=== PATIENT | female | born 1975 | race Caucasian/White ===

== ENCOUNTER → 2017-12-20 | Outpatient (CLI) | payer MEDICAID ==
--- NOTE | 2017-12-21 13:52 | MM ---
Reason for exam: screening (asymptomatic). Last mammogram was performed 1 year and 2 months ago. History: US discontinued breast bx LT of the left breast, April 08, 2015. Benign u/S left breast needle core of the left breast, October 16, 2013. Physical Findings: A clinical breast exam by your physician is recommended on an annual basis and results should be correlated with mammographic findings. MG 3D Screening Mammo W/Cad Bilateral CC and MLO view(s) were taken. Prior study comparison: October 23, 2016, bilateral MG 3d diag mammo w/cad [facility]. March 22, 2015, bilateral MG diagnostic mammo w CAD [facility]. The breast tissue is heterogeneously dense. This may lower the sensitivity of mammography. Finding: There are typically benign dystrophic, round, regional and grouped calcifications in both breasts. There is no discrete abnormality. ASSESSMENT: Benign, BI-RAD 2 RECOMMENDATION: Routine screening mammogram of both breasts in 1 year.
== END | disposition home or self-care (01) ==
LOC: RADMAMWWP 10:12
PROVIDERS: ATTEND Obstetrics & Gynecology
DX: Z12.31 Encounter for screening mammogram for malignant neoplasm of breast (principal)
CPT/HCPCS: 77063; 77067

== ENCOUNTER → 2017-12-23 | Outpatient (CLI) | payer MEDICAID ==
--- NOTE | 2017-12-23 17:42 | XR ---
EXAMINATION TYPE: XR spine complete AP and Lat DATE OF EXAM: 12/23/2017 COMPARISON: NONE HISTORY: Back pain TECHNIQUE: 9 views FINDINGS: The cervical vertebra of normal alignment. There is some anterior spurring at C4-5. Disc sp aces are fairly normal. Atlantoaxial facet joint is normal. Thoracic vertebra have normal alignment. Lumbar vertebra have normal alignment. There is mild anterior spurring at L2-3 L3-4. I see no signifi cant thoracic and lumbar disc space narrowing. Sacroiliac joints appear normal. Posterior elements ap pear intact. The remainder of the exam is unremarkable. IMPRESSION: Minor degenerative spurring. Otherwise negative complete spine exam.
== END | disposition home or self-care (01) ==
LOC: RADXRMAIN 17:02
PROVIDERS: ATTEND Physician Assistant
DX: M46.02 Spinal enthesopathy, cervical region (principal); M46.06 Spinal enthesopathy, lumbar region
CPT/HCPCS: 72082

== ENCOUNTER → 2018-07-22 | Outpatient (CLI) | payer MEDICAID ==
--- NOTE | 2018-07-22 10:12 | US ---
EXAMINATION TYPE: US abdomen complete DATE OF EXAM: 07/22/2018 COMPARISON: NONE CLINICAL HISTORY: R10.9 Abd Pain. Epigastric pain after meals EXAM MEASUREMENTS: Liver Length: 17.0 cm Gallbladder Wall: 0.2 cm CBD: 0.5 cm Spleen: 10.0 cm Right Kidney: 10.2 x 6.0 x 3.8 cm Left Kidney: 10.1 x 5.9 x 4.7 cm Pancreas: hyperechoic, but no masses seen Liver: wnl Gallbladder: wnl Evidence for sonographic Enciso's sign: no CBD: wnl Spleen: wnl Right Kidney: wnl Left Kidney: wnl Upper IVC: wnl Abd Aorta: wnl IMPRESSION: 1. Mild hepatomegaly. 2. Abdomen ultrasound is otherwise unremarkable.
== END | disposition home or self-care (01) ==
LOC: RADUSMAIN 09:11
PROVIDERS: ATTEND Family Medicine
DX: R16.0 Hepatomegaly, not elsewhere classified (principal)
CPT/HCPCS: 76700

== ENCOUNTER → 2019-08-26 | Outpatient (CLI) | payer MEDICAID ==
--- NOTE | 2019-08-29 08:10 | MM ---
Reason for exam: screening (asymptomatic). Last mammogram was performed 1 year and 8 months ago. History: US discontinued breast bx LT of the left breast, April 08, 2015. Benign u/S left breast needle core of the left breast, October 16, 2013. Physical Findings: A clinical breast exam by your physician is recommended on an annual basis and results should be correlated with mammographic findings. MG 3D Screening Mammo W/Cad Bilateral CC and MLO view(s) were taken. Prior study comparison: December 20, 2017, bilateral MG 3d screening mammo w/cad. October 23, 2016, bilateral MG 3d diag mammo w/cad [facility]. The breast tissue is heterogeneously dense. This may lower the sensitivity of mammography. No significant changes when compared with prior studies. ASSESSMENT: Negative, BI-RAD 1 RECOMMENDATION: Routine screening mammogram of both breasts in 1 year.
== END | disposition home or self-care (01) ==
LOC: RADMAMWWP 10:37
PROVIDERS: ATTEND Obstetrics & Gynecology
DX: Z12.31 Encounter for screening mammogram for malignant neoplasm of breast (principal)
CPT/HCPCS: 77063; 77067

== ENCOUNTER → 2020-01-11 | Outpatient (CLI) | payer MEDICAID ==
--- NOTE | 2020-01-12 07:13 | US ---
EXAMINATION TYPE: US chest DATE OF EXAM: 01/11/2020 COMPARISON: NONE CLINICAL HISTORY: R22.2 localized swelling, mass, and lump, trunk. Mass of chest wall. Palpable area left lateral chest/upper abdomen x 1 month. TECHNIQUE/FINDINGS: Targeted grayscale and color ultrasound was performed of the palpable abnormality of the left chest wall. Scanned area of palpable left lateral chest/upper abdomen. There is an isoechoic prominent area of ti ssue at area of concern that measures: 4.1 x 4.8 x 1.1 cm. This is merely avascular and well circumsc ribed. Hyperechoic bands smoothly rounded through the lesion. IMPRESSIONS: Lipomatous lesion of the left chest wall measuring 4.8 cm. Most commonly this is a benig n lipoma. If there is clinical interval growth MRI with contrast would be recommended much less likel y liposarcoma.
== END | disposition home or self-care (01) ==
LOC: RADUSWWP 16:53
PROVIDERS: ATTEND Family Medicine
DX: L98.8 Other specified disorders of the skin and subcutaneous tissue (principal)
CPT/HCPCS: 76604

== ENCOUNTER → 2020-12-18 | Outpatient (CLI) | payer MEDICAID ==
--- NOTE | 2020-12-20 11:07 | MM ---
Reason for exam: screening (asymptomatic). Last mammogram was performed 1 year and 4 months ago. History: US discontinued breast bx LT of the left breast, April 08, 2015. Benign u/S left breast needle core of the left breast, October 16, 2013. Physical Findings: A clinical breast exam by your physician is recommended on an annual basis and results should be correlated with mammographic findings. MG 3D Screening Mammo W/Cad Bilateral CC and MLO view(s) were taken. Prior study comparison: August 26, 2019, bilateral MG 3d screening mammo w/cad. December 20, 2017, bilateral MG 3d screening mammo w/cad. The breast tissue is heterogeneously dense. This may lower the sensitivity of mammography. There is no discrete abnormality. No significant changes when compared with prior studies. ASSESSMENT: Negative, BI-RAD 1 RECOMMENDATION: Routine screening mammogram of both breasts in 1 year.
== END | disposition home or self-care (01) ==
LOC: RADMAMWWP 09:37
PROVIDERS: ATTEND Obstetrics & Gynecology
DX: Z12.31 Encounter for screening mammogram for malignant neoplasm of breast (principal)
CPT/HCPCS: 77063; 77067

== ENCOUNTER → 2022-09-14 | Outpatient (CLI) | payer MEDICAID ==
--- NOTE | 2022-09-15 17:06 | MM ---
Reason for Exam: Screening (asymptomatic). Last mammogram was performed 1 year(s) and 9 month(s) ago. Patient History: Menarche at age 14. First Full-Term at age 30. Previous chest radiation therapy. Hormonal Contraceptives, from age 21 until age 39. 10/16/2013, Benign Core Biopsy on the left side. 04/08/2015, US discontinued breast bx LT on the left side. Risk Values: Kathy 5 year model risk: 1.4%. NCI Lifetime model risk: 12.5%. Prior Study Comparison: 12/20/2017 Bilateral Screening Mammogram, [facility]. 08/26/2019 Bilateral Screening Mammogram, [facility]. 12/18/2020 Bilateral Screening Mammogram, [facility]. Tissue Density: The breast tissue is heterogeneously dense. This may lower the sensitivity of mammography. Findings: Analyzed By CAD. Pattern appears symmetrical and stable. No significant interval change is evident. No suspicious groups of microcalcifications, spiculated or lobular masses, architectural distortion or other secondary signs of malignancy are mammographically apparent. Overall Assessment: Benign, BI-RAD 2 Management: Screening Mammogram of both breasts in 1 year. A negative mammogram report should not preclude additional follow up of suspicious palpable abnormalities. Patient should continue monthly self breast exam. A clinical breast exam by your physician is recommended on an annual basis and results should be correlated with mammographic findings. Electronically signed and approved by: Harish Escobar D.O. Radiologis
== END | disposition home or self-care (01) ==
LOC: RADMAMWWP 08:28
PROVIDERS: ATTEND Obstetrics & Gynecology
DX: Z12.31 Encounter for screening mammogram for malignant neoplasm of breast (principal); Z92.3 Personal history of irradiation; Z98.890 Other specified postprocedural states
CPT/HCPCS: 77063; 77067

== ENCOUNTER → 2023-02-08 | Outpatient (CLI) | payer MEDICAID ==
[2023-02-08 16:18] LABS: Chol/HDL Ratio 3.48 Ratio; Glucose 99 mg/dL (70-110); LDL Cholesterol,Calculated 99.7 mg/dL (0.0-131.0)
== END | disposition home or self-care (01) ==
LOC: LABWHC1 11:04
PROVIDERS: ATTEND Family Medicine
DX: E78.1 Pure hyperglyceridemia (principal)
CPT/HCPCS: 36415; 80061; 82947

== ENCOUNTER → 2023-06-24 | Outpatient (CLI) | payer MEDICAID ==
--- NOTE | 2023-06-24 17:59 | US ---
EXAMINATION TYPE: US pelvis complete transvag DATE OF EXAM: 06/24/2023 COMPARISON: NONE CLINICAL INDICATION: Female, 48 years old with history of R10.2 PELVIC AND PERINEAL PAIN; pelvic full ness, sensation of needing to urinate x 1 month TECHNIQUE: Transabdominal (TA). Transabdominal sonographic images of the pelvis were acquired. Tra nsvaginal sonographic images were medically necessary to better assess the following anatomy: Ovaries Date of LMP: [id number] EXAM MEASUREMENTS: Uterus: 10.6x4.6x6.7 cm Endometrial Stripe: 0.8 cm Right Ovary: not visualized Left Ovary: 3.3x2.7x2.8 cm 1. Uterus: Anteverted, large nabothian cyst:2.2x1.5x1.7cm wnl 2. Endometrium: wnl, heterogenous 3. Right Ovary: Obscured by overlying bowel gas 4. Left Ovary: cystic area noted: 2.7x2.3x2.2cm 5. Bilateral Adnexa: Obscured by overlying bowel gas 6. Posterior cul-de-sac: wnl Rt ovary not visualized due to bowel. Cystic area noted on left ovary was difficult to delineate from ovary IMPRESSION: 1. cervical nabothian cyst. 2. Probable functional ovarian cyst left ovary. Consider follow-up study in 6 weeks.
== END | disposition home or self-care (01) ==
LOC: RADUSWWP 15:29
PROVIDERS: ATTEND Family Medicine
DX: N88.8 Other specified noninflammatory disorders of cervix uteri (principal)
CPT/HCPCS: 76830; 76856

== ENCOUNTER → 2023-10-14 | Outpatient (CLI) | payer MEDICAID ==
[2023-10-15 02:58] LABS: Basophils # (A) 0.04 X 10*3/uL (0.00-0.10); Basophils % (A) 0.4 %; Eosinophils # (A) 0.29 X 10*3/uL (0.04-0.35); Eosinophils % (A) 3.2 %; HCT 39.3 % (37.2-50.0); HGB 12.4 g/dL (12.0-17.0); Lymphocytes # (A) 2.09 X 10*3/uL (0.90-5.00); Lymphocytes % (A) 23.3 %; MCHC 31.6 g/dL (32.0-37.0); MCV 85.4 FL (80.0-97.0); Mean Platelet Volume 9.9 FL (9.5-12.2); Monocytes # (A) 0.75 X 10*3/uL (0.20-1.00); Monocytes % (A) 8.4 %; NRBC Per 100 WBC 0 X 10*3/uL (0.00-0.01); Neutrophils # (A) 5.79 X 10*3/uL (1.80-7.70); Neutrophils % (A) 64.5 %; Platelet Count 273 X 10*3/uL (140-440); WBC 8.98 X 10*3/uL (4.50-10.00)
== END | disposition home or self-care (01) ==
LOC: LABWHC1 14:45
PROVIDERS: ATTEND Obstetrics & Gynecology
DX: Z01.812 Encounter for preprocedural laboratory examination (principal)
CPT/HCPCS: 36415; 85025

== ENCOUNTER 2023-10-21 08:42 | Day surgery (SDC) | payer MEDICAID ==
[2023-10-18 13:34] VITALS: BMI 33.4
--- NOTE | 2023-10-20 15:39 | P.HPOB ---
History of Present Illness H&P Date: 10/20/23 Chief Complaint: Menorrhagia with irregular cycle This is a 48 y.o. female, 2, para 2, who presents for dilatation and curettage with hysteroscopy and Novasure endometrial ablation due to menorrhagia with irregular cycle. She complains of painful menses occurring more that once a month lasting 5-6 days each time. Her menses are very heavy with clots. Pelvic ultrasound showed uterus measuring 10.6 x 4.6 x 6.7 cm with endometrium 8 mm and left ovary with 2.7 cm cyst. Right ovary was not well-visualized. OB Hx: . 1 vaginal delivery and 1 section. General Cleaner Hx: History of chlamydia treated years ago. Social Hx: . 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 Review of Systems Constitutional: Denies chills, Denies fever Eyes: denies blurred vision, denies pain Ears, nose, mouth and throat: Denies headache, Denies sore throat Cardiovascular: Denies chest pain, Denies shortness of breath Respiratory: Denies cough Gastrointestinal: Denies abdominal pain, Denies diarrhea, Denies nausea, Denies vomiting Genitourinary: Reports dysmenorrhea, Reports dyspareunia, Reports menorrhagia, Reports vaginal dryness, Reports vaginal itching Menstruation: Reports menses variable, Reports period heavy Musculoskeletal: Denies myalgias Integumentary: Denies pruritus, Denies rash Neurological: Denies numbness, Denies weakness Psychiatric: Reports anxiety Past Medical History Past Medical History: No Reported History History of Any Multi-Drug Resistant Organisms: None Reported Past Surgical History: Breast Surgery, Section Additional Past Surgical History / Comment(s): left breast lumpectomy-benign Past Anesthesia/Blood Transfusion Reactions: No Reported Reaction, Motion Sickness Additional Past Anesthesia/Blood Transfusion Reaction / Comment(s): no blood transfusion Past Psychological History: Anxiety Smoking Status: Current every day smoker Past Alcohol Use History: Occasional Additional Past Alcohol Use History / Comment(s): . Past Drug Use History: Marijuana Additional Drug Use History / Comment(s): daily - Past Family History Mother Family Medical History: No Reported History Medications and Allergies Home Medications Medication Instructions Recorded Confirmed Type Sertraline [Zoloft] 100 mg PO DAILY 06/23/23 10/21/23 History Fexofenadine/Pseudoephedrine 1 tab PO DAILY 10/21/23 10/21/23 History [Madai-D 24 Hour Tablet] Allergies Allergy/AdvReac Type Severity Reaction Status Date / Time No Known Allergies Allergy Verified 10/21/23 08:53 Exam Osteopathic Statement: *. No significant issues noted on an osteopathic structural exam other than those noted in the History and Physical/Consult. HEENT: within normal limits Heart: regular rate and rhythm Lungs: clear to auscultation bilaterally Abdomen: soft, non-tender Pelvic: uterus anteverted, non-tender, no adnexal masses or tenderness Extremities: neg. Tai's Assessment and Plan (1) Menorrhagia with irregular cycle Current Visit: No Status: Acute Code(s): N92.1 - EXCESSIVE AND FREQUENT MENSTRUATION WITH IRREGULAR CYCLE SNOMED Code(s): 584172122 Plan: Proceed with dilatation and curettage with hysteroscopy and Novasure endometrial ablation. I have discussed the risks, benefits, and alternative therapies for the above- mentioned procedure and for both sedation/anesthesia as well as necessary blood products administration, if indicated, as they pertain to this patient. The patient has indicated her understanding and acceptance of the risks and procedures discussed.
[~2023-10-21 08:42] MED LIST: DEXAMETHASONE SOD PHOSPHATE 4 MG/ML 1 ML VIAL IV ONE; LACTATED RINGERS 1,000 ML IV SCH; LIDOCAINE 1% (10MG/ML) FOR IV START INTRADERMA PRN; ONDANSETRON 4 MG/2 ML VIAL IVP ONE; Pre Op ABX Message 1 EACH MISC MISCELLANE ONE; SCOPOLAMINE 1 MG/72 HR PATCH TRANSDERM ONE; droPERidol 5 MG/2 ML VIAL IVP ONE
[2023-10-21] MEDS ORDERED: MIDAZOLAM 2 MG/2 ML VIAL IVP ONE (09:15)
[2023-10-21] MEDS ORDERED: LACTATED RINGERS 1,000 ML IV ONE ×2 (09:15)
[2023-10-21] MEDS ORDERED: PROPOFOL 10 MG/ML 20 ML VIAL IV ONE (09:19)
[2023-10-21] MEDS ORDERED: LIDOCAINE 1% INJ 10MG/ML (20 ML MDV) ONE (09:19)
[2023-10-21] MEDS ORDERED: GLYCOPYRROLATE 0.2 MG/ML 2 ML VIAL ONE (09:19)
[2023-10-21] MEDS ORDERED: fentaNYL (PF) 50 MCG/ML 2 ML AMP ONE (09:19)
[2023-10-21] MEDS ORDERED: KETOROLAC 15 MG/ML 1 ML VIAL ONE (09:19)
[2023-10-21 09:38] VITALS: RESP 16
--- NOTE | 2023-10-21 09:59 | P.OP ---
Date of Procedure: 10/21/23 Preoperative Diagnosis: Menorrhagia with irregular cycle Dysmenorrhea Postoperative Diagnosis: Same Procedure(s) Performed: Patient and curettage with hysteroscopy and NovaSure endometrial ablation Anesthesia: GATITO Surgeon: Mariela Prieto Estimated Blood Loss (ml): 5 Pathology: other (Endometrial curettings) Condition: stable Disposition: same day Indications for Procedure: This is a 48 y.o. female, 2, para 2, who presents for dilatation and curettage with hysteroscopy and Novasure endometrial ablation due to menorrhagia with irregular cycle. She complains of painful menses occurring more that once a month lasting 5-6 days each time. Her menses are very heavy with clots. Pelvic ultrasound showed uterus measuring 10.6 x 4.6 x 6.7 cm with endometrium 8 mm and left ovary with 2.7 cm cyst. Right ovary was not well-visualized. Operative Findings: Uterus is sounded to 9 cm, cervix is sounded to 3 cm. Upon hysteroscopy, dyssynchronous endometrial pattern is noted. Both tubal ostia are visualized. Uterus is anteverted with no adnexal masses. Description of Procedure: The patient is taken to the operating room. She is placed in the dorsal lithotomy position after general anesthesia was given. She is prepped and draped in the normal sterile fashion. Bladder is drained with a catheter and then removed. Pelvic exam is performed under anesthesia. Uterus is found to be anteverted with no adnexal masses. She is placed in slight Trendelenburg position. A right angle retractor is used to visualize the cervix. The anterior lip of the cervix is grasped with a single-tooth tenaculum. Cervix is sounded to 3 cm. Uterus is sounded to 9 cm. Cervix is gently dilated with Victoria dilators until a hysteroscope could be passed. Hysteroscopy is performed using normal saline. The above noted findings are noted. Next a polyp forceps is introduced. And a minimal amount of tissue was obtained. Next medium-sized size sharp curette was placed. A moderate amount of endometrial curettings were obtained. Next NovaSure array was inserted into the endometrial cavity. Length was set at 6 cm and width was determined to be 4.6 cm. Next cavity assessment was completed and passed on the first try. Next NovaSure array was fired at and 52 W for 115 seconds. Next the array was removed, inspected and then discarded. Next the hysteroscope was reinserted. Uniform charring was noted. Pictures were taken. Hysteroscope was removed. Single-tooth tenaculum was removed from the anterior lip of the cervix. Minimal bleeding was noted. All other instruments removed from the vagina. Sponge counts were correct. Patient is taken to recovery room in stable condition.
[2023-10-21] MEDS: HYDROmorphone 0.5 MG/0.5 ML SYRINGE IVP PRN ×2 (10:12→10:25)
[2023-10-21 10:28] VITALS: TEMP 97.3
[2023-10-21 11:19] VITALS: BP 145/83; PULSE 68
== END 2023-10-21 11:12 | disposition home or self-care (01) ==
LOC: OR 08:42
PROVIDERS: ATTEND Obstetrics & Gynecology
DX: N83.202 Unspecified ovarian cyst, left side (principal); N94.6 Dysmenorrhea, unspecified; F41.9 Anxiety disorder, unspecified; F10.90 Alcohol use, unspecified, uncomplicated; F17.200 Nicotine dependence, unspecified, uncomplicated; Z79.899 Other long term (current) drug therapy
CPT/HCPCS: 58563; 81025; 88305; J2250; J1100; J2405; J2001; J3010; J1885; J2704; J1170

== ENCOUNTER → 2023-12-20 | Outpatient (CLI) | payer MEDICAID ==
--- NOTE | 2023-12-21 08:49 | MM ---
Reason for Exam: Screening (asymptomatic). Last mammogram was performed 1 year(s) and 3 month(s) ago. Patient History: Menarche at age 14. First Full-Term at age 30. Premenopausal. Previous chest radiation therapy. Hormonal Contraceptives, from age 21 until age 39. 10/16/2013, Benign Core Biopsy on the left side. 04/08/2015, US discontinued breast bx LT on the left side. Risk Values: Kathy 5 year model risk: 1.4%. NCI Lifetime model risk: 12.3%. Prior Study Comparison: 08/26/2019 Bilateral Screening Mammogram, [facility]. 12/18/2020 Bilateral Screening Mammogram, [facility]. 09/14/2022 Bilateral MG 3D screening mammo w/cad, [facility]. Tissue Density: The breast tissue is heterogeneously dense. This may lower the sensitivity of mammography. Findings: Analyzed By CAD. There is no suspicious group of microcalcifications or new suspicious mass. Overall Assessment: Negative, BI-RAD 1 Management: Screening Mammogram of both breasts in [address] [facility] will attempt to contact patient to return for supplemental views and ultrasound if indicated. Patient should continue monthly self-breast exams. A clinical breast exam by your physician is recommended on an annual basis. This exam should not preclude additional follow-up of suspicious palpable abnormalities. Note on Kathy scores and lifetime risk: 1. A Kathy score greater than 3% is considered moderate risk. If this is the case, consider specialist referral to assess eligibility for a risk reducing agent. 2. If overall lifetime risk for the development of breast cancer is 20% or higher, the patient may qualify for future screening with alternating mammogram and breast MRI. Electronically signed and approved by: Richard Leslie DO
== END | disposition home or self-care (01) ==
LOC: RADMAMWWP 10:09
PROVIDERS: ATTEND Obstetrics & Gynecology
DX: Z12.31 Encounter for screening mammogram for malignant neoplasm of breast (principal)
CPT/HCPCS: 77063; 77067

== ENCOUNTER → 2024-04-24 | Outpatient (CLI) | payer MEDICAID ==
[2024-04-24 10:16] LABS: Basophils # (A) 0.03 X 10*3/uL (0.00-0.10); Basophils % (A) 0.5 %; Eosinophils # (A) 0.37 X 10*3/uL (0.04-0.35); HCT 41.1 % (37.2-50.0); HGB 12.6 g/dL (12.0-17.0); Lymphocytes # (A) 1.09 X 10*3/uL (0.90-5.00); Lymphocytes % (A) 17.8 %; MCH 26.6 pg (27.0-32.0); MCHC 30.7 g/dL (32.0-37.0); MCV 86.7 FL (80.0-97.0); Mean Platelet Volume 9.6 FL (9.5-12.2); Monocytes # (A) 0.46 X 10*3/uL (0.20-1.00); Monocytes % (A) 7.5 %; NRBC Per 100 WBC 0 X 10*3/uL (0.00-0.01); Neutrophils # (A) 4.17 X 10*3/uL (1.80-7.70); Neutrophils % (A) 67.9 %; Platelet Count 246 X 10*3/uL (140-440); RBC 4.74 X 10*6/uL (4.10-5.60); RDW 12.8 % (11.5-14.5); WBC 6.14 X 10*3/uL (4.50-10.00)
[2024-04-24 10:44] LABS: ALT 15 U/L (8-49); AST 17 U/L (13-35); Albumin 4.2 g/dL (3.8-4.9); Albumin/Globulin Ratio 1.68 Ratio (1.60-3.17); Alkaline Phosphatase 91 U/L (41-126); BUN/Creat Ratio 23.88 Ratio (12.00-20.00); Blood Urea Nitrogen 19.1 mg/dL (9.0-27.0); Calcium 9.2 mg/dL (8.7-10.3); Carbon Dioxide 25.7 mmol/L (21.6-31.8); Chloride 106 mmol/L (96-109); Globulin 2.5 g/dL (1.6-3.3); Glucose 107 mg/dL (70-110); LDL Cholesterol,Calculated 90.3 mg/dL (0.0-131.0); Potassium 4.5 mmol/L (3.5-5.5); Sodium 141 mmol/L (135-145); T4, Free (Free Thyroxine) 1.18 ng/dL (0.80-1.80); Total Bilirubin 0.3 mg/dL (0.3-1.2); Total Protein 6.7 g/dL (6.2-8.2)
== END | disposition home or self-care (01) ==
LOC: LABWHC1 07:59
PROVIDERS: ATTEND Nurse Practitioner Family
DX: E78.1 Pure hyperglyceridemia (principal); R16.0 Hepatomegaly, not elsewhere classified
CPT/HCPCS: 36415; 80053; 80061; 84439; 84443; 85025

== ENCOUNTER → 2024-05-02 | Outpatient (CLI) | payer MEDICAID ==
--- NOTE | 2024-05-02 15:14 | XR ---
EXAMINATION TYPE: XR cervical spine 3V, XR lumbar spine 3V DATE OF EXAM: 05/02/2024 Comparison: Cervical spine 12/23/2017 Clinical History: 48 year old female M54.50 M54.2 LOW BACK PAIN, UNSPECIFIED CERVICALGI Findings: Cervical spine: No predental space widening or prevertebral soft tissue swelling. Mild to moderate disc/endplate dege nerative change particularly C4-C6 levels with disc space narrowing and endplate spondylosis. Alignme nt is maintained. Normal odontoid view. Changes progressed compared to 2018. Lumbar spine: 5 lumbar type vertebral bodies. Mild multilevel degenerative disc disease at straining of the normal lumbar lordosis. Vertebral body heights are preserved and alignment is maintained. Impression: 1. Cervical spine: Mild to moderate disc/endplate degenerative change C4-C6 levels shows some progres jammie from 2018. No malalignment or prevertebral soft tissue swelling. 2. Lumbar spine: Mild multilevel degenerative disc disease. Straightening of the normal lumbar lordos is could be positional or due to muscle spasm. No vertebral compression collapse or malalignment.
== END | disposition home or self-care (01) ==
LOC: RADXRMAIN 12:03
PROVIDERS: ATTEND Nurse Practitioner Family
DX: M47.812 Spondylosis without myelopathy or radiculopathy, cervical region (principal); M51.36 Other intervertebral disc degeneration, lumbar region
CPT/HCPCS: 72040; 72100

== ENCOUNTER → 2024-06-05 | Outpatient (CLI) | payer MEDICAID ==
--- NOTE | 2024-06-05 18:12 | CA ---
Transthoracic Echo Report Name: Tawanna Oliva Age: 48 Gender: F : 1975 Exam Date: 06/05/2024 11:36 Exam Location: [facility] Ht (in): 66 Wt (lb): 210 Ordering Physician: Abimael Eduardo DO Attending/Referring Phys: Aspen Walton [facility] Pensionholder Information Clerk Katia Adhikari RDCS Procedure CPT: Indications: R01.1 cardiac murmur Cardiac Hx: Technical Quality: Fair Contrast 1: Total Dose (mL): Contrast 2: Total Dose (mL): MEASUREMENTS (Male / Female) Normal Values 2D ECHO LV Diastolic Diameter PLAX 4.4 cm 4.2 - 5.9 / 3.9 - 5.3 cm LV Systolic Diameter PLAX 2.8 cm IVS Diastolic Thickness 0.9 cm 0.6 - 1.0 / 0.6 - 0.9 cm LVPW Diastolic Thickness 0.7 cm 0.6 - 1.0 / 0.6 - 0.9 cm LV Relative Wall Thickness 0.4 LVOT Diameter 2.1 cm LA Volume 44.9 cm??? 18 - 58 / 22 - 52 cm??? LA Volume Index 21.0 cm???/m??? 16 - 28 cm???/m??? Ascending Aorta Diameter 3.0 cm DOPPLER AV Peak Velocity 178.9 cm/s AV Peak Gradient 12.8 mmHg AV Mean Velocity 126.0 cm/s AV Mean Gradient 7.0 mmHg AV Velocity Time Integral 36.9 cm LVOT Peak Velocity 142.3 cm/s LVOT Peak Gradient 8.1 mmHg LVOT Velocity Time Integral 26.6 cm LVOT Stroke Volume 90.7 cm??? LVOT Stroke Volume Index 44.4 ml/m??? LVOT Cardiac Index 3258.7 cm???/min???m??? AV Area Cont Eq vti 2.5 cm??? AV Area Cont Eq pk 2.7 cm??? MV Area PHT 2.9 cm??? Mitral E Point Velocity 87.2 cm/s Mitral A Point Velocity 75.1 cm/s Mitral E to A Ratio 1.2 MV Deceleration Time 263.2 ms PV Peak Velocity 124.1 cm/s PV Peak Gradient 6.2 mmHg FINDINGS Left Ventricle Left ventricular ejection fraction is estimated at 60 %. Left ventricular cavity size normal. Left ventricular wall thickness normal. No obvious regional wall motion abnormalities. Right Ventricle Normal right ventricular size and function. Unable to estimate the right ventricular systolic pressure. Right Atrium Normal right atrial size. Left Atrium Normal left atrial size. Mitral Valve Structurally normal mitral valve. No mitral stenosis, regurgitation or prolapse. Aortic Valve Trileaflet aortic valve. No aortic valve stenosis or regurgitation. Tricuspid Valve Structurally normal tricuspid valve. No tricuspid stenosis. Trace tricuspid regurgitation. Pulmonic Valve Structurally normal pulmonic valve. No pulmonic stenosis. Trace pulmonic regurgitation. Pericardium No pericardial effusion. Aorta Normal size aortic root and proximal ascending aorta. CONCLUSIONS Preserved LV size and systolic function Previewed by: Dr. Ryley Bansal MD (Electronically Signed) Final Date: 05 June 2024 18:11
== END | disposition home or self-care (01) ==
LOC: RADECHMAIN 11:19
PROVIDERS: ATTEND Family Medicine
DX: R01.1 Cardiac murmur, unspecified (principal)
CPT/HCPCS: 93306